=== PATIENT | female | born 1990 | race Caucasian/White ===

== ENCOUNTER → 2016-03-30 | Outpatient (REF) | LOC: WSOH 14:51 | DX: Z02.89 Encounter for other administrative examinations (principal) ==

== ENCOUNTER → 2016-09-04 | Outpatient (CLI) | payer OTHER | LOC: BHSO 11:05 | DX: F90.0 Attention-deficit hyperactivity disorder, predominantly inattentive type (principal) | CPT/HCPCS: 90791-AI ==